=== PATIENT | female | born 1950 | race Caucasian/White ===

== ENCOUNTER 2016-12-11 08:36 | Emergency (ER) | payer OTHER, MEDICARE ==
[~2016-12-11] VITALS: Ht 170.2 cm; Wt 98.4 kg
[2016-12-11 08:36] VITALS: BP_SYST 134
[2016-12-11] MEDS ORDERED: ALPR0.5T96 PO (08:56)
[2016-12-11] MEDS ORDERED: TRAZ-126 PO (08:56)
[2016-12-11] MEDS ORDERED: LEVO100T PO (08:56)
[2016-12-11] MEDS ORDERED: TOP25 PO (08:56)
[2016-12-11] MEDS ORDERED: DOCU-144 PO (08:56)
[2016-12-11] MEDS ORDERED: DULO60CA41 PO (08:56)
[2016-12-11] MEDS ORDERED: ALBU8.5H8 INH (08:56)
[2016-12-11] MEDS ORDERED: ASA81 PO (08:56)
[2016-12-11] MEDS ORDERED: NITR12SP6 TL (08:56)
[2016-12-11] MEDS ORDERED: ZONI100C16 PO (08:56)
[2016-12-11] MEDS ORDERED: FAMO20TA98 PO (08:56)
[2016-12-11] MEDS ORDERED: CHOL500052 PO (08:56)
[2016-12-11] MEDS ORDERED: BACL10TA PO (08:56)
[2016-12-11] MEDS ORDERED: BECL8.7A5 INH (08:56)
[2016-12-11] MEDS ORDERED: MORP1CAP11 PO (08:56)
[2016-12-11] MEDS ORDERED: TIZA4TAB11 PO (08:56)
[2016-12-11] MEDS ORDERED: DIPHENHYDRAMINE INJ 50 MG/ML VIAL IVP ONE (09:00)
[2016-12-11] MEDS ORDERED: MORPHINE 4 MG/ML INJ. SYRINGE IVP ONE (09:00)
[2016-12-11 09:35] LABS: BASOPHILS # (AUTO) 0.2 K/uL (0.0-0.2); BASOPHILS % (AUTO) 2.3 % (0.0-2.0); EOSINOPHILS # (AUTO) 0.2 K/uL (0.0-0.4); EOSINOPHILS % (AUTO) 3.2 % (0.0-4.0); HEMATOCRIT 37.9 % (36-48); HEMOGLOBIN 12.4 g/dL (12.0-16.0); LYMPHOCYTES # (AUTO) 2.1 K/uL (1.0-5.5); LYMPHOCYTES % (AUTO) 28.6 % (20.5-51.5); MEAN CORPUSCULAR HEMOGLOBIN 29 pg (27-31); MEAN CORPUSCULAR HGB CONC 33 % (32-36); MEAN CORPUSCULAR VOLUME 89 fL (79.0-98.0); MONOCYTES # (AUTO) 0.5 K/uL (0.0-1.0); MONOCYTES % (AUTO) 6.8 % (1.7-9.3); NEUTROPHILS # (AUTO) 4.5 K/uL (1.8-7.7); NEUTROPHILS % (AUTO) 59.1 % (40.0-70.0); PLATELET COUNT (AUTO) 274 K/uL (130-430); RED BLOOD CELL COUNT(AUTO) 4.25 MIL/uL (4.2-6.2); RED CELL DISTRIBUTION WIDTH 12.3 % (9.0-15.0); WHITE BLOOD COUNT (AUTO) 7.5 K/uL (4.8-10.8)
[2016-12-11 10:21] LABS: CALCIUM 9.2 mg/dL (8.4-11.0); CREATININE 0.97 mg/dL (0.55-1.30); POTASSIUM 3.5 mmol/L (3.5-5.1)
[2016-12-11 10:22] LABS: INR 0.9 (0.8-1.2); PROTHROMBIN TIME 10.1 SECS (9.5-12.5)
[2016-12-11 10:26] LABS: ALBUMIN 3.8 g/dL (3.4-4.8); TOTAL BILIRUBIN 0.4 mg/dL (0.0-1.0); TOTAL PROTEIN, SERUM 6.9 g/dL (6.4-8.3)
[2016-12-11 11:51] VITALS: BP_SYST 123
== END 2016-12-11 11:51 | disposition home or self-care (01) ==
LOC: SED 08:36
DX: M54.5 Low back pain (principal); M25.511 Pain in right shoulder; M25.562 Pain in left knee; I10 Essential (primary) hypertension; Z85.43 Personal history of malignant neoplasm of ovary; Z79.82 Long term (current) use of aspirin; Z79.899 Other long term (current) drug therapy; Z86.79 Personal history of other diseases of the circulatory system; W01.0XXA Fall on same level from slipping, tripping and stumbling without subsequent striking against object, initial encounter; Y93.89 Activity, other specified; Y92.89 Other specified places as the place of occurrence of the external cause; Y99.8 Other external cause status
CPT/HCPCS: 36415; 71010; 72125; 72131; 73020; 73560; 80053; 83880; 84484; 85025; 85610; 93005; 96374; 96375; 99285; J1200; J2270

== ENCOUNTER 2021-09-11 23:03 | Inpatient (IN) | payer OTHER, MEDICARE, SELFPAY ==
[~2021-09-11] VITALS: Ht 170.2 cm; Wt 90.7 kg
[~2021-09-11 23:03] MED LIST: ALBU8.5H8 INH; ALPR0.5T PO; ASA81 PO; BECL8.7A5 INH; CHOL500052 PO; CYAN100010 PO; DOXY100C PO; LEVO100T PO; MORP1CAP11 PO; POTA-197 PO; TOP25 PO; ZONI100C42 PO
[2021-09-11 23:05] VITALS: BP_SYST 125
[2021-09-11 23:36] LABS: BASOPHILS # (AUTO) 0.1 K/uL (0.0-0.2); BASOPHILS % (AUTO) 1.5 % (0.0-2.0); EOSINOPHILS # (AUTO) 0.3 K/uL (0.0-0.4); EOSINOPHILS % (AUTO) 2.8 % (0.0-4.0); HEMATOCRIT 35.4 % (36-48); HEMOGLOBIN 11.5 g/dL (12.0-16.0); LYMPHOCYTES % (AUTO) 21.7 % (20.5-51.5); MEAN CORPUSCULAR HEMOGLOBIN 30 pg (27-31); MEAN CORPUSCULAR HGB CONC 33 % (32-36); MEAN CORPUSCULAR VOLUME 94 fL (79.0-98.0); MONOCYTES # (AUTO) 0.6 K/uL (0.0-1.0); MONOCYTES % (AUTO) 6.7 % (1.7-9.3); NEUTROPHILS # (AUTO) 6.3 K/uL (1.8-7.7); NEUTROPHILS % (AUTO) 67.3 % (40.0-70.0); PLATELET COUNT (AUTO) 272 K/uL (130-430); RED BLOOD CELL COUNT(AUTO) 3.77 MIL/uL (4.2-6.2); RED CELL DISTRIBUTION WIDTH 13.3 % (9.0-15.0); WHITE BLOOD COUNT (AUTO) 9.4 K/uL (4.8-10.8)
[2021-09-11 23:58] LABS: ANION GAP 14 (5-15); CALCIUM 9.4 mg/dL (8.4-11.0); CHLORIDE 102 mmol/L (98-107); CREATININE 3.37 mg/dL (0.55-1.30); GLUCOSE 124 mg/dL (70-99); POTASSIUM 3.6 mmol/L (3.5-5.1); SODIUM SERUM 139 mmol/L (136-145); UREA NITROGEN, BLOOD 33 mg/dL (8-21)
[2021-09-12 00:07] LABS: ALANINE AMINOTRANSFERASE 48 U/L (12-78); ALBUMIN 3.3 g/dL (3.4-4.8); ASPARTATE AMINOTRANSFERASE 32 U/L (10-37); TOTAL BILIRUBIN 0.3 mg/dL (0.0-1.0)
[2021-09-12 00:08] LABS: GFR AFRICAN AMERICAN 17 mL/min (>90)
[2021-09-12 00:09] LABS: ACETAMINOPHEN < 1 ug/mL (1-30); ALCOHOL, BLOOD < 3 mg/dL (<10)
[2021-09-12] MEDS ORDERED: NACL 0.9% 1,000 ML IV ONE ×3 (00:30→01:45)
[2021-09-12] MEDS ORDERED: CEFEPIME 2 GM in D5W 100 ML IV ONE (01:30)
[2021-09-12] MEDS ORDERED: VANCOMYCIN HCL 1,000 MG in NS 250 ML IV ONE (01:30)
[2021-09-12] MEDS ORDERED: CEFEPIME 1 GM/VIAL (MAXIPIME) ONE (02:43)
[2021-09-12] MEDS ORDERED: VANCOMYCIN HCL 1000 MG/VIAL IV ONE (02:43)
[2021-09-12] MEDS ORDERED: PIPERACILLIN/TAZO 3.375 GM in NS 50 ML IV SCH (06:00)
[2021-09-12 06:06] VITALS: BP_SYST 101
[2021-09-12 06:46] LABS: BASOPHILS # (AUTO) 0.1 K/uL (0.0-0.2); BASOPHILS % (AUTO) 0.6 % (0.0-2.0); EOSINOPHILS # (AUTO) 0.2 K/uL (0.0-0.4); EOSINOPHILS % (AUTO) 1.5 % (0.0-4.0); HEMATOCRIT 34.8 % (36-48); HEMOGLOBIN 11.4 g/dL (12.0-16.0); LYMPHOCYTES # (AUTO) 2.2 K/uL (1.0-5.5); LYMPHOCYTES % (AUTO) 19.5 % (20.5-51.5); MEAN CORPUSCULAR HEMOGLOBIN 31 pg (27-31); MEAN CORPUSCULAR HGB CONC 33 % (32-36); MEAN CORPUSCULAR VOLUME 94 fL (79.0-98.0); MONOCYTES # (AUTO) 0.8 K/uL (0.0-1.0); MONOCYTES % (AUTO) 7.3 % (1.7-9.3); NEUTROPHILS # (AUTO) 8.1 K/uL (1.8-7.7); NEUTROPHILS % (AUTO) 71.1 % (40.0-70.0); PLATELET COUNT (AUTO) 217 K/uL (130-430); RED BLOOD CELL COUNT(AUTO) 3.69 MIL/uL (4.2-6.2); RED CELL DISTRIBUTION WIDTH 13.1 % (9.0-15.0); WHITE BLOOD COUNT (AUTO) 11.4 K/uL (4.8-10.8)
[2021-09-12] MEDS: 0.45% NACL 1,000 ML IV SCH ×2 (07:13→13:30)
[2021-09-12 07:26] LABS: CALCIUM 8.3 mg/dL (8.4-11.0); CREATININE 2.27 mg/dL (0.55-1.30); POTASSIUM 4.1 mmol/L (3.5-5.1)
[2021-09-12 07:41] LABS: ALBUMIN 2.9 g/dL (3.4-4.8); THYROID STIMULATING HORMONE 4.53 uIu/mL (0.36-3.74); TOTAL BILIRUBIN 0.3 mg/dL (0.0-1.0)
[2021-09-12 08:15] VITALS: BP_SYST 110
[2021-09-12 12:26] VITALS: BP_SYST 105
[2021-09-12] MEDS: PIPERACILLIN/TAZOBACTAM 2.25 GM in NS 50 ML IV SCH ×3 (12:35→23:43)
[2021-09-12 16:35] VITALS: BP_SYST 106
[2021-09-12 20:00] VITALS: BP_SYST 110
[2021-09-12] MEDS: POTASSIUM CHLORIDE 20 MEQ TAB.PRT.SR PO SCH (20:13)
[2021-09-12] MEDS: TOPIRAMATE 25 MG TABLET(TOPAMAX) PO SCH (20:14)
[2021-09-12] MEDS: CLOTRIMAZOLE 1% TOPICAL CREAM 15 GM TP SCH (20:14)
[2021-09-12] MEDS: ALPRAZolam 0.25 MG TABLET PO SCH (20:14)
[2021-09-12] MEDS ORDERED: [UNRECOGNIZED DRUG - OTHER] PO SCH (21:00)
[2021-09-12] MEDS ORDERED: MORPHINE SULFATE PO SCH (21:00)
[2021-09-12] MEDS ORDERED: NALTREXONE PO SCH (21:00)
[2021-09-13 00:15] VITALS: BP_SYST 100
[2021-09-13] MEDS: 0.45% NACL 1,000 ML IV SCH ×4 (03:58→21:00)
[2021-09-13 04:00] VITALS: BP_SYST 134
[2021-09-13] MEDS: PIPERACILLIN/TAZOBACTAM 2.25 GM in NS 50 ML IV SCH ×2 (05:12→11:56)
[2021-09-13] MEDS ORDERED: VANCOMYCIN HCL 1,000 MG in NS 250 ML IV SCH (06:00)
[2021-09-13] MEDS: LEVOTHYROXINE SODIUM 0.1 MG TABLET PO SCH (06:13)
[2021-09-13 07:47] VITALS: BP_SYST 113
[2021-09-13] MEDS: TOPIRAMATE 25 MG TABLET(TOPAMAX) PO SCH ×3 (08:54→22:57)
[2021-09-13] MEDS: CYANOCOBALAMIN 1000 mCg TABLET PO SCH (08:54)
[2021-09-13] MEDS: CHOLECALCIFEROL (VITAMIN D3) 5,000 UNIT TABLET PO SCH (08:54)
[2021-09-13] MEDS: POTASSIUM CHLORIDE 20 MEQ TAB.PRT.SR PO SCH ×2 (08:54→22:57)
[2021-09-13] MEDS: ALPRAZolam 0.25 MG TABLET PO SCH ×3 (08:55→22:57)
[2021-09-13] MEDS: ASPIRIN 81 MG TAB.CHEW PO SCH (08:56)
[2021-09-13] MEDS: CLOTRIMAZOLE 1% TOPICAL CREAM 15 GM TP SCH ×2 (08:58→21:00)
[2021-09-13] MEDS: ZONISAMIDE 100 MG CAPSULE PO SCH (09:06)
[2021-09-13 12:20] VITALS: BP_SYST 123
[2021-09-13] MEDS: ACETAMINOPHEN 325 MG TABLET PO PRN (13:33)
[2021-09-13 16:10] VITALS: BP_SYST 126
[2021-09-13] MEDS: cefTRIAXone 1 GM in D5W 50 ML IV SCH (17:50)
[2021-09-13 18:23] LABS: FREE T4 (FREE THYROXINE) 1.2 ng/dl (0.8-1.5); THYROID STIMULATING HORMONE 1.59 uIu/mL (0.36-3.74)
[2021-09-13 20:07] LABS: PROTHROMBIN TIME 10.2 SECS (9.5-12.5)
[2021-09-13 20:58] VITALS: BP_SYST 142
[2021-09-14 02:45] VITALS: BP_SYST 148
[2021-09-14] MEDS: 0.45% NACL 1,000 ML IV SCH ×4 (03:40→22:17)
[2021-09-14 06:53] LABS: CALCIUM 9.4 mg/dL (8.4-11.0); CREATININE 0.73 mg/dL (0.55-1.30); PHOSPHORUS 2.4 mg/dL (2.7-4.5)
[2021-09-14] MEDS: LEVOTHYROXINE SODIUM 0.1 MG TABLET PO SCH (07:00)
[2021-09-14 07:42] LABS: BASOPHILS % (AUTO) 0.4 % (0.0-2.0); EOSINOPHILS # (AUTO) 0.1 K/uL (0.0-0.4); EOSINOPHILS % (AUTO) 1.1 % (0.0-4.0); HEMATOCRIT 32.4 % (36-48); LYMPHOCYTES # (AUTO) 1.6 K/uL (1.0-5.5); LYMPHOCYTES % (AUTO) 17.6 % (20.5-51.5); MEAN CORPUSCULAR HEMOGLOBIN 31 pg (27-31); MEAN CORPUSCULAR HGB CONC 34 % (32-36); MEAN CORPUSCULAR VOLUME 92 fL (79.0-98.0); MONOCYTES # (AUTO) 0.7 K/uL (0.0-1.0); NEUTROPHILS # (AUTO) 6.9 K/uL (1.8-7.7); NEUTROPHILS % (AUTO) 73.9 % (40.0-70.0); PLATELET COUNT (AUTO) 264 K/uL (130-430); RED BLOOD CELL COUNT(AUTO) 3.54 MIL/uL (4.2-6.2); RED CELL DISTRIBUTION WIDTH 13.1 % (9.0-15.0); WHITE BLOOD COUNT (AUTO) 9.4 K/uL (4.8-10.8)
[2021-09-14 08:07] VITALS: BP_SYST 138
[2021-09-14 08:27] LABS: URINE SODIUM, RANDOM 125 mmol/L (40-220)
[2021-09-14] MEDS: ASPIRIN 81 MG TAB.CHEW PO SCH (10:41)
[2021-09-14] MEDS: ZONISAMIDE 100 MG CAPSULE PO SCH (10:41)
[2021-09-14] MEDS: CYANOCOBALAMIN 1000 mCg TABLET PO SCH (10:41)
[2021-09-14] MEDS: POTASSIUM CHLORIDE 20 MEQ TAB.PRT.SR PO SCH (10:41)
[2021-09-14] MEDS: CHOLECALCIFEROL (VITAMIN D3) 5,000 UNIT TABLET PO SCH (10:41)
[2021-09-14] MEDS: CLOTRIMAZOLE 1% TOPICAL CREAM 15 GM TP SCH ×2 (10:42→22:18)
[2021-09-14] MEDS: ALPRAZolam 0.25 MG TABLET PO SCH ×3 (10:42→22:18)
[2021-09-14] MEDS: TOPIRAMATE 25 MG TABLET(TOPAMAX) PO SCH ×3 (10:42→22:18)
[2021-09-14 12:03] VITALS: BP_SYST 152
[2021-09-14 16:21] VITALS: BP_SYST 146
[2021-09-14] MEDS: cefTRIAXone 1 GM in D5W 50 ML IV SCH (17:18)
[2021-09-14] MEDS ORDERED: POTASSIUM CHLORIDE 20 MEQ/PKT PACKET PO ONE (20:15)
[2021-09-14] MEDS ORDERED: K PHOS 30 MM in NS 250 ML IV ONE (20:15)
[2021-09-14 20:21] VITALS: BP_SYST 149
[2021-09-15 00:52] VITALS: BP_SYST 144
[2021-09-15] MEDS ORDERED: K PHOS 30 MM in NS 250 ML IV ONE (07:00)
[2021-09-15 07:13] LABS: BASOPHILS % (AUTO) 0.5 % (0.0-2.0); EOSINOPHILS # (AUTO) 0.2 K/uL (0.0-0.4); HEMATOCRIT 33.1 % (36-48); HEMOGLOBIN 11.2 g/dL (12.0-16.0); LYMPHOCYTES # (AUTO) 1.6 K/uL (1.0-5.5); LYMPHOCYTES % (AUTO) 18.7 % (20.5-51.5); MEAN CORPUSCULAR HEMOGLOBIN 31 pg (27-31); MEAN CORPUSCULAR HGB CONC 34 % (32-36); MEAN CORPUSCULAR VOLUME 92 fL (79.0-98.0); MONOCYTES # (AUTO) 0.8 K/uL (0.0-1.0); MONOCYTES % (AUTO) 8.6 % (1.7-9.3); NEUTROPHILS # (AUTO) 6.1 K/uL (1.8-7.7); NEUTROPHILS % (AUTO) 70.2 % (40.0-70.0); PLATELET COUNT (AUTO) 276 K/uL (130-430); RED CELL DISTRIBUTION WIDTH 13.1 % (9.0-15.0); WHITE BLOOD COUNT (AUTO) 8.7 K/uL (4.8-10.8)
[2021-09-15] MEDS: LEVOTHYROXINE SODIUM 0.1 MG TABLET PO SCH (07:18)
[2021-09-15 07:30] LABS: CALCIUM 9.2 mg/dL (8.4-11.0); CREATININE 0.72 mg/dL (0.55-1.30); PHOSPHORUS 2.9 mg/dL (2.7-4.5)
[2021-09-15 08:00] VITALS: BP_SYST 137
[2021-09-15 08:12] LABS: POTASSIUM 2.5 mmol/L (3.5-5.1)
[2021-09-15] MEDS ORDERED: POTASSIUM CHLORIDE 20 MEQ/PKT PACKET PO ONE (08:30)
[2021-09-15] MEDS: CLOTRIMAZOLE 1% TOPICAL CREAM 15 GM TP SCH ×2 (09:49→20:56)
[2021-09-15] MEDS: TOPIRAMATE 25 MG TABLET(TOPAMAX) PO SCH ×3 (09:50→20:55)
[2021-09-15] MEDS: ZONISAMIDE 100 MG CAPSULE PO SCH (09:50)
[2021-09-15] MEDS: ALPRAZolam 0.25 MG TABLET PO SCH ×3 (09:50→20:55)
[2021-09-15] MEDS: CHOLECALCIFEROL (VITAMIN D3) 5,000 UNIT TABLET PO SCH (09:50)
[2021-09-15] MEDS: ASPIRIN 81 MG TAB.CHEW PO SCH (09:51)
[2021-09-15] MEDS: CYANOCOBALAMIN 1000 mCg TABLET PO SCH (09:51)
[2021-09-15 11:35] LABS: BILIRUBIN,URINE NEGATIVE (NEGATIVE); BLOOD, URINE NEGATIVE (NEGATIVE); CLARITY/URINE CLEAR (CLEAR); COLOR,URINE YELLOW (YELLOW); GLUCOSE,URINE NEGATIVE (NEGATIVE); KETONES,URINE 1+ (NEGATIVE); LEUKOCYTE ESTERASE ,URINE NEGATIVE (NEGATIVE); NITRITE, URINE NEGATIVE (NEGATIVE); PROTEIN URINE NEGATIVE (NEGATIVE); UROBILINOGEN,URINE 0.2 (0.2-1.0)
[2021-09-15 12:00] VITALS: BP_SYST 140
[2021-09-15 16:19] VITALS: BP_SYST 139
[2021-09-15] MEDS: 0.45% NACL 1,000 ML IV SCH (16:27)
[2021-09-15] MEDS: cefTRIAXone 1 GM in D5W 50 ML IV SCH (17:45)
[2021-09-15 18:40] LABS: PHOSPHORUS 4.3 mg/dL (2.7-4.5); POTASSIUM 3.1 mmol/L (3.5-5.1)
[2021-09-15 20:00] VITALS: BP_SYST 148
[2021-09-15] MEDS: SODIUM BICARBONATE 650 MG TABLET PO SCH (20:55)
[2021-09-16 00:30] VITALS: BP_SYST 145
[2021-09-16] MEDS: 0.45% NACL 1,000 ML IV SCH ×2 (05:35→14:32)
[2021-09-16] MEDS ORDERED: POTASSIUM CHLORIDE 20 MEQ in NS 250 ML IV ONE (06:00)
[2021-09-16] MEDS: LEVOTHYROXINE SODIUM 0.1 MG TABLET PO SCH (06:24)
[2021-09-16 06:57] LABS: CALCIUM 8.6 mg/dL (8.4-11.0); CREATININE 0.7 mg/dL (0.55-1.30)
[2021-09-16 08:00] VITALS: BP_SYST 140
[2021-09-16 08:33] LABS: POTASSIUM 2.7 mmol/L (3.5-5.1)
[2021-09-16] MEDS: ASPIRIN 81 MG TAB.CHEW PO SCH (09:51)
[2021-09-16] MEDS: SODIUM BICARBONATE 650 MG TABLET PO SCH ×2 (09:51→20:52)
[2021-09-16] MEDS: CHOLECALCIFEROL (VITAMIN D3) 5,000 UNIT TABLET PO SCH (09:51)
[2021-09-16] MEDS: ALPRAZolam 0.25 MG TABLET PO SCH ×3 (09:51→20:52)
[2021-09-16] MEDS: TOPIRAMATE 25 MG TABLET(TOPAMAX) PO SCH ×3 (09:51→20:52)
[2021-09-16] MEDS: CYANOCOBALAMIN 1000 mCg TABLET PO SCH (09:51)
[2021-09-16] MEDS: POTASSIUM CHLORIDE 20 MEQ/PKT PACKET PO SCH ×2 (09:52→20:52)
[2021-09-16] MEDS: ZONISAMIDE 100 MG CAPSULE PO SCH (09:52)
[2021-09-16] MEDS: CLOTRIMAZOLE 1% TOPICAL CREAM 15 GM TP SCH ×2 (09:52→20:53)
[2021-09-16] MEDS: DIPHENOXYLATE HCL/ATROP SULF 2.5 MG TAB PO PRN ×2 (10:52→17:30)
[2021-09-16] MEDS ORDERED: POTASSIUM CHLORIDE 20 MEQ/PKT PACKET PO ONE (11:00)
[2021-09-16 12:19] VITALS: BP_SYST 155
[2021-09-16 16:30] VITALS: BP_SYST 150
[2021-09-16 16:47] LABS: CALCIUM 8.4 mg/dL (8.4-11.0); CREATININE 0.66 mg/dL (0.55-1.30); POTASSIUM 3.6 mmol/L (3.5-5.1)
[2021-09-16] MEDS: cefTRIAXone 1 GM in D5W 50 ML IV SCH (17:29)
[2021-09-16 20:00] VITALS: BP_SYST 137
[2021-09-17 00:25] VITALS: BP_SYST 131
[2021-09-17] MEDS: LEVOTHYROXINE SODIUM 0.1 MG TABLET PO SCH (06:45)
[2021-09-17] MEDS: DIPHENOXYLATE HCL/ATROP SULF 2.5 MG TAB PO PRN ×2 (06:50→10:15)
[2021-09-17 07:32] LABS: BASOPHILS # (AUTO) 0.1 K/uL (0.0-0.2); BASOPHILS % (AUTO) 0.7 % (0.0-2.0); EOSINOPHILS # (AUTO) 0.4 K/uL (0.0-0.4); EOSINOPHILS % (AUTO) 4.6 % (0.0-4.0); HEMATOCRIT 30.8 % (36-48); HEMOGLOBIN 10.4 g/dL (12.0-16.0); LYMPHOCYTES # (AUTO) 1.7 K/uL (1.0-5.5); LYMPHOCYTES % (AUTO) 20.7 % (20.5-51.5); MEAN CORPUSCULAR HEMOGLOBIN 31 pg (27-31); MEAN CORPUSCULAR HGB CONC 34 % (32-36); MEAN CORPUSCULAR VOLUME 92 fL (79.0-98.0); MONOCYTES # (AUTO) 0.6 K/uL (0.0-1.0); MONOCYTES % (AUTO) 7.4 % (1.7-9.3); NEUTROPHILS # (AUTO) 5.6 K/uL (1.8-7.7); NEUTROPHILS % (AUTO) 66.6 % (40.0-70.0); PLATELET COUNT (AUTO) 261 K/uL (130-430); RED BLOOD CELL COUNT(AUTO) 3.36 MIL/uL (4.2-6.2); RED CELL DISTRIBUTION WIDTH 13.3 % (9.0-15.0); WHITE BLOOD COUNT (AUTO) 8.4 K/uL (4.8-10.8)
[2021-09-17 08:15] VITALS: BP_SYST 140
[2021-09-17 09:00] LABS: CALCIUM 8.3 mg/dL (8.4-11.0); CREATININE 0.66 mg/dL (0.55-1.30)
[2021-09-17] MEDS ORDERED: CHOLECALCIFEROL (VITAMIN D3) 5,000 UNIT TABLET PO SCH (09:00)
[2021-09-17] MEDS: ALPRAZolam 0.25 MG TABLET PO SCH (09:51)
[2021-09-17] MEDS: CYANOCOBALAMIN 1000 mCg TABLET PO SCH (09:52)
[2021-09-17] MEDS: TOPIRAMATE 25 MG TABLET(TOPAMAX) PO SCH (09:52)
[2021-09-17] MEDS: SODIUM BICARBONATE 650 MG TABLET PO SCH (09:52)
[2021-09-17] MEDS: ZONISAMIDE 100 MG CAPSULE PO SCH (09:52)
[2021-09-17] MEDS: POTASSIUM CHLORIDE 20 MEQ/PKT PACKET PO SCH (09:52)
[2021-09-17] MEDS: ASPIRIN 81 MG TAB.CHEW PO SCH (09:52)
[2021-09-17] MEDS: CLOTRIMAZOLE 1% TOPICAL CREAM 15 GM TP SCH (09:53)
[2021-09-17] MEDS: 0.45% NACL 1,000 ML IV SCH (09:54)
[2021-09-17] MEDS: ACETAMINOPHEN 325 MG TABLET PO PRN (10:06)
[2021-09-17 12:28] VITALS: BP_SYST 151
[2021-09-17] MEDS ORDERED: HYDROcodone/ACETAMIN 5-325 MG TAB (NORCO/ VICODIN) PO PRN (13:30)
[2021-09-17] MEDS ORDERED: MORPHINE SULFATE 15 MG TABLET.ER PO ONE (14:00)
[2021-09-17] MEDS ORDERED: MORP15TA60 PO (14:51)
[2021-09-17] MEDS ORDERED: LIDO1ADH77 (14:51)
[2021-09-17] MEDS ORDERED: DULO60CA42 PO (14:51)
[2021-09-17] MEDS ORDERED: GABA-529 PO (14:51)
[2021-09-17] MEDS ORDERED: NITR0.4T47 SL (14:51)
[2021-09-17] MEDS ORDERED: DOCU-144 PO (14:51)
[2021-09-17] MEDS ORDERED: TOPI200T PO (14:51)
[2021-09-17] MEDS ORDERED: ALBU8.5H8 INH (14:51)
[2021-09-17] MEDS ORDERED: NITR12SP6 TL (14:51)
[2021-09-17] MEDS ORDERED: LIDO700A30 TP (14:51)
[2021-09-17] MEDS ORDERED: TRAZ-251 PO (14:51)
[2021-09-17] MEDS ORDERED: ZAN4 PO (14:51)
[2021-09-17] MEDS ORDERED: SULF5DRO EACH EYE (14:51)
[2021-09-17] MEDS ORDERED: FAMO20TA8 PO (14:51)
[2021-09-17 15:28] VITALS: BP_SYST 142
[2021-09-17] MEDS ORDERED: MORPHINE SULFATE 15 MG TABLET.ER PO SCH (21:00)
== END 2021-09-17 17:33 | disposition home or self-care (01) | DRG 91 ==
LOC: SED 23:03 → STU 09-12 05:00
PROVIDERS: ADMIT Internal Medicine; ATTEND Internal Medicine
PROC: 02HV33Z Insertion of Infusion Device into Superior Vena Cava, Percutaneous Approach (ICD-10-PCS; principal; 2021-09-13)
DX: G92.8 Other toxic encephalopathy (principal); N17.0 Acute kidney failure with tubular necrosis; N18.4 Chronic kidney disease, stage 4 (severe); E03.9 Hypothyroidism, unspecified; E11.22 Type 2 diabetes mellitus with diabetic chronic kidney disease; F02.80 Dementia in other diseases classified elsewhere, unspecified severity, without behavioral disturbance, psychotic disturbance, mood disturbance, and anxiety; G30.9 Alzheimer's disease, unspecified; G40.909 Epilepsy, unspecified, not intractable, without status epilepticus; I12.9 Hypertensive chronic kidney disease with stage 1 through stage 4 chronic kidney disease, or unspecified chronic kidney disease; I25.10 Atherosclerotic heart disease of native coronary artery without angina pectoris; J44.9 Chronic obstructive pulmonary disease, unspecified; E86.0 Dehydration; E87.6 Hypokalemia; R19.7 Diarrhea, unspecified; K21.9 Gastro-esophageal reflux disease without esophagitis; Z20.822 Contact with and (suspected) exposure to COVID-19; Z79.82 Long term (current) use of aspirin; Z85.43 Personal history of malignant neoplasm of ovary; Z86.73 Personal history of transient ischemic attack (TIA), and cerebral infarction without residual deficits; Z87.891 Personal history of nicotine dependence; Z95.0 Presence of cardiac pacemaker; Z91.09 Other allergy status, other than to drugs and biological substances; Z79.2 Long term (current) use of antibiotics; Z79.01 Long term (current) use of anticoagulants; Z79.899 Other long term (current) drug therapy
CPT/HCPCS: 36415; 70450-TC; 71045; 76376; 76770; 80048; 80053; 80061; 81003; 82043; 82140; 82306; 82570; 83605; 83735; 84100; 84132; 84295; 84302; 84436; 84439; 84443; 84479; 84484; 85025; 85610-TC; 85730-TC; 87040; 87086; 87177; 87230-TC; 93005; 96361; 96365; 96367; 97110-GP; 97116-GP; 97163-GP; 97530-GP; 99291; G0378; G0480; G0482; J0692; J0696; J2543; J3370; J3480; J7050; J7060

== ENCOUNTER 2023-01-30 15:45 | Inpatient (IN) | payer OTHER, MEDICARE ==
[~2023-01-30] VITALS: Ht 165.1 cm; Wt 86.2 kg
[~2023-01-30 15:45] MED LIST changes: -CYAN100010 PO; +DOCU-144 PO; -DOXY100C PO; +DULO60CA42 PO; +FAMO20TA8 PO; +GABA-529 PO; +LIDO700A30 TP; +MORP15TA60 PO; -MORP1CAP11 PO; +NITR0.4T47 SL; -POTA-197 PO; +SULF5DRO EACH EYE; -TOP25 PO; +TOPI200T PO; +TRAZ-251 PO; +ZAN4 PO
--- NOTE | 2023-01-30 15:49 | NUR ---
Patient to ER bed 03 to gown for evaluation. Side rails up.
[2023-01-30 15:52] VITALS: BP_SYST 127; PULSE 94; RESP 18; TEMP 98.3; O2SAT 95
[2023-01-30] MEDS ORDERED: MORPHINE 4 MG INJ. 4 MG/ML VIAL IM ONE (16:15)
[2023-01-30] MEDS ORDERED: KETOROLAC TROMETHAMINE 60 MG/2 ML VIAL IM ONE (16:15)
--- NOTE | 2023-01-30 16:45 | NUR ---
Patient has been seen by MD and radiologic exams completed. MD back to bedside to tell patient that she has fracture and how it will be treated. Patient agrees with MD plan.
--- NOTE | 2023-01-30 17:15 | NUR ---
Patient received pain medicine and currently is getting splint placed by EMT. remains at bedside and patient to be discharged after MD reviews splint and care.
--- NOTE | 2023-01-30 18:15 | NUR ---
Patient and spoke with MD after patient was slated for discharge and patient felt she couldn't go back home with the stairs and other issues at her house at this time. MD resciended discharge and made it available for patient to be admitted at this time.
[2023-01-30] MEDS ORDERED: DOCUSATE SODIUM 100 MG CAPSULE PO PRN (18:30)
[2023-01-30] MEDS ORDERED: ZOLPIDEM TARTRATE 5 MG TABLET PO PRN (18:30)
[2023-01-30] MEDS ORDERED: MAGNESIUM SULFATE 50 ML IV PRN (18:30)
[2023-01-30] MEDS ORDERED: POTASSIUM CHLORIDE 20 MEQ TAB.PRT.SR PO PRN (18:30)
[2023-01-30] MEDS ORDERED: MORPHINE 2 MG/ML INJ. SYRINGE IVP PRN (18:30)
[2023-01-30] MEDS ORDERED: MUPIROCIN 2% TOPICAL OINTMENT 22 GM NS PRN (18:30)
[2023-01-30] MEDS ORDERED: LORazepam 2 MG/ML VIAL IVP PRN (18:30)
[2023-01-30] MEDS ORDERED: ACETAMINOPHEN 325 MG TABLET PO PRN ×2 (18:30)
[2023-01-30] MEDS ORDERED: ONDANSETRON HCL 4 MG/2 ML VIAL IVP PRN (18:30)
[2023-01-30] MEDS ORDERED: NACL 0.9% 1,000 ML IV ONE (18:30)
[2023-01-30 18:49] LABS: BASOPHILS # (AUTO) 0.1 K/uL (0.0-0.2); BASOPHILS % (AUTO) 1.1 % (0.0-2.0); EOSINOPHILS # (AUTO) 0.2 K/uL (0.0-0.4); HEMATOCRIT 37.5 % (36-48); HEMOGLOBIN 12.4 g/dL (12.0-16.0); LYMPHOCYTES # (AUTO) 2.4 K/uL (1.0-5.5); LYMPHOCYTES % (AUTO) 25.7 % (20.5-51.5); MEAN CORPUSCULAR HEMOGLOBIN 29 pg (27-31); MEAN CORPUSCULAR HGB CONC 33 % (32-36); MEAN CORPUSCULAR VOLUME 89 fL (79.0-98.0); MONOCYTES # (AUTO) 0.6 K/uL (0.0-1.0); MONOCYTES % (AUTO) 6.2 % (1.7-9.3); NEUTROPHILS # (AUTO) 6.1 K/uL (1.8-7.7); PLATELET COUNT (AUTO) 273 K/uL (130-430); RED BLOOD CELL COUNT(AUTO) 4.24 MIL/uL (4.2-6.2); WHITE BLOOD COUNT (AUTO) 9.4 K/uL (4.8-10.8)
[2023-01-30] MEDS: NACL 0.9% 1,000 ML IV SCH (18:54)
--- NOTE | 2023-01-30 19:06 | NUR ---
Admit bed requested Patient will be admitted to care of . Admitted to med-surg unit. Diagnosis Left arm fracture. Inpatient (Yes or No) Y Observation (Yes or No) N Orientation concerns or request close to nursing station (Yes or No) Y Covid Status N On vent or bipap N Isolation requirements N Needs a sitter N From Home (Yes or if No enter name of facility) Y Requires Dialysis (Yes or No) N Med Rec Completed (Yes of No) Y
[2023-01-30 19:17] LABS: ALANINE AMINOTRANSFERASE 22 U/L (12-78); ALBUMIN 3.1 g/dL (3.4-4.8); ANION GAP 7 (5-15); ASPARTATE AMINOTRANSFERASE 21 U/L (10-37); CALCIUM 8.9 mg/dL (8.4-11.0); CHLORIDE 107 mmol/L (98-107); CREATININE 0.93 mg/dL (0.55-1.30); GLUCOSE 115 mg/dL (74-106); TOTAL BILIRUBIN 0.2 mg/dL (0.0-1.0); UREA NITROGEN, BLOOD 14 mg/dL (8-21)
--- NOTE | 2023-01-30 19:43 | NUR ---
PATIENT STABLE VITALS SIGNS IN NORMAL LIMITS NOT COMPLAINING OF PAIN AT THIS TIME
--- NOTE | 2023-01-30 21:20 | NUR ---
RECEIVED PATIENT TO ROOM 106B FROM THE EMERGENCY ROOM VIA GURNEY, ACCOMPANIED BY CHIEF MEDICAL OFFICER. ASSUMED CARE, AND STARTED ASSESSMENT.
--- NOTE | 2023-01-30 21:21 | NUR ---
Patient will be admitted to care of . Admitted to unit. Will go to room . Belongings list completed. Complete and up to date summary report printed. SBAR report to be given at bedside with opportunity for questions.patient stable vitals signs in normal limits repor and endorse care to Christopher WAITE
[2023-01-30 21:53] VITALS: BP_SYST 147; PULSE 73; RESP 16; TEMP 97.1; O2SAT 97
[2023-01-30] MEDS: ZONISAMIDE 100 MG CAPSULE PO SCH (22:00)
[2023-01-30 22:40] LABS: BILIRUBIN,URINE NEGATIVE (NEGATIVE); BLOOD, URINE NEGATIVE (NEGATIVE); CLARITY/URINE CLEAR (CLEAR); COLOR,URINE YELLOW (YELLOW); GLUCOSE,URINE NEGATIVE (NEGATIVE); KETONES,URINE NEGATIVE (NEGATIVE); LEUKOCYTE ESTERASE ,URINE NEGATIVE (NEGATIVE); NITRITE, URINE NEGATIVE (NEGATIVE); PH,URINE 7.5 (5.0-8.0); PROTEIN URINE NEGATIVE (NEGATIVE)
[2023-01-31] MEDS: traZODone HCL 50 MG TABLET (DESYREL) PO SCH ×2 (01:05→21:49)
[2023-01-31] MEDS: GABAPENTIN 100 MG CAPSULE PO SCH ×3 (01:05→21:48)
[2023-01-31] MEDS: DULoxetine HCL 30 MG CAPSULE.DR (CYMBALTA) PO SCH ×3 (01:05→21:48)
[2023-01-31] MEDS: TOPIRAMATE 100 MG TABLET(Topamax) PO SCH ×2 (01:06→21:48)
[2023-01-31] MEDS: HEPARIN SODIUM,PORCINE 5,000 UNITS/ML VIAL SUBCUT SCH ×3 (01:07→21:50)
--- NOTE | 2023-01-31 01:47 | NUR ---
Consultation Paged Reason for Consultation: R Fibular Fx Was consult called: Y Person who was notified: Abena Consulting Physician: Michel Kulkarni Ordering Physician: Dr. Lopez
[2023-01-31 05:17] LABS: BASOPHILS % (AUTO) 0.4 % (0.0-2.0); EOSINOPHILS # (AUTO) 0.3 K/uL (0.0-0.4); EOSINOPHILS % (AUTO) 3.8 % (0.0-4.0); HEMATOCRIT 34.9 % (36-48); HEMOGLOBIN 11.6 g/dL (12.0-16.0); LYMPHOCYTES # (AUTO) 2.8 K/uL (1.0-5.5); LYMPHOCYTES % (AUTO) 39.9 % (20.5-51.5); MEAN CORPUSCULAR HEMOGLOBIN 29 pg (27-31); MEAN CORPUSCULAR HGB CONC 33 % (32-36); MEAN CORPUSCULAR VOLUME 88 fL (79.0-98.0); MONOCYTES # (AUTO) 0.5 K/uL (0.0-1.0); MONOCYTES % (AUTO) 7.6 % (1.7-9.3); NEUTROPHILS # (AUTO) 3.4 K/uL (1.8-7.7); NEUTROPHILS % (AUTO) 48.3 % (40.0-70.0); PLATELET COUNT (AUTO) 240 K/uL (130-430); RED BLOOD CELL COUNT(AUTO) 3.97 MIL/uL (4.2-6.2); RED CELL DISTRIBUTION WIDTH 12.8 % (9.0-15.0)
[2023-01-31 05:51] LABS: ANION GAP 9 (5-15); CALCIUM 8.1 mg/dL (8.4-11.0); CHLORIDE 109 mmol/L (98-107); CREATININE 0.91 mg/dL (0.55-1.30); GLUCOSE 96 mg/dL (74-106); UREA NITROGEN, BLOOD 12 mg/dL (8-21)
[2023-01-31] MEDS: LEVOTHYROXINE SODIUM 0.1 MG TABLET PO SCH (06:14)
--- NOTE | 2023-01-31 07:37 | NUR ---
REPORT GIVEN TO PATY REZA, AND CARE WAS TURNED OVER TO HER.
--- NOTE | 2023-01-31 08:00 | NUR ---
opening pt alert oriented x4, states she does not have pain at this time, is comfortable in bed, pt reminded not to get out of bed, educated occupational safety and health manager light and fall precautions in place.
[2023-01-31 08:37] VITALS: BP_SYST 132; PULSE 81; RESP 12; TEMP 98; O2SAT 95
[2023-01-31] MEDS: ASPIRIN 81 MG TAB.CHEW PO SCH (08:59)
[2023-01-31] MEDS: DOCUSATE SODIUM 100 MG CAPSULE PO SCH (09:09)
[2023-01-31] MEDS: NACL 0.9% 1,000 ML IV SCH ×2 (09:18→23:21)
[2023-01-31] MEDS: ZONISAMIDE 100 MG CAPSULE PO SCH ×2 (09:27→21:53)
--- NOTE | 2023-01-31 09:30 | NUR ---
pain pt c/o pain in the left hand says it is a 8 on scale on 1-10, ivp morphine given by howie salinas as per orders for pain relief
[2023-01-31] MEDS: MORPHINE 2 MG/ML INJ. SYRINGE IVP PRN ×3 (09:34→21:41)
--- NOTE | 2023-01-31 10:41 | NUR ---
seizure precautions seizure precautions in place on bed, pt educated on fall precautions, yellow gown, arm band and socks on, call light with in reach
[2023-01-31 11:40] VITALS: BP_SYST 139; PULSE 71; RESP 16; TEMP 98.1; O2SAT 94
--- NOTE | 2023-01-31 14:00 | NUR ---
CT PT TAKEN VIA [facility] FOR CT SCAN OF HEAD WITHOUT CONTRAST
[2023-01-31 16:00] VITALS: BP_SYST 138; PULSE 73; RESP 16; TEMP 98.1; O2SAT 94
[2023-01-31 17:07] VITALS: O2SAT 98
--- NOTE | 2023-01-31 17:24 | NUR ---
PAIN PT C/O PAIN, PAIN MED GIVEN PER DR. KATZ, PT STATES PAIN IS AN 8 ON A SCALE OF 1-10
--- NOTE | 2023-01-31 19:05 | NUR ---
CLOSING, PT COMFORTABLE IN BED , CALL LIGHT WITH IN REACH, FALL PRECAUTIONS IN PLACE, PT INSTRUCTED TO CALL FOR ANY NEEDS, CARE ENDORSED TO NEXT SHIFT/
--- NOTE | 2023-01-31 19:40 | NUR ---
OPENING NOTE PT LYING IN BED AND EYES OPEN. REPORTED PAIN ON LEFT HAND AND RIGHT LEG /10. NO IV ACCESS D/T LEAKING. DRESSING WRAPPED ON LEFT AND AND RIGHT ANKLE, CLEAN DRY, INTACT. NO S/S OF ACUTE DISTRESS. BED ALARM ON. SAFETY CHECKS IN PLACE. CALL LIGHT IN REACH. CONTINUE TO MONITOR
[2023-01-31 20:00] VITALS: O2SAT 96
--- NOTE | 2023-01-31 22:30 | NUR ---
NEW IV. CHARGE NURSE SCHUYLER OBTAINED IV 24G ON RIGHT HAND.
[2023-02-01] VITALS (8 sets, daily range): BP systolic 118–156; PULSE 68–81; RESP 14–20; TEMP 97.4–98.2; O2SAT 95–100
--- NOTE | 2023-02-01 01:20 | NUR ---
NOTE: PT LYING IN BED AND RESTING. PT STATED PAIN RELIEVED LITTLE BIT. ALL COMFORT MEASURE MET AT THIS MOMENT. BED ALARM ON. SAFETY CHECKS IN PLACE. CALL LIGHT IN REACH. CONTINUE TO MONITOR
[2023-02-01] MEDS: LEVOTHYROXINE SODIUM 0.1 MG TABLET PO SCH (06:02)
--- NOTE | 2023-02-01 07:15 | NUR ---
closing note PT LYING IN BED AND EYES CLOSED. BREATHING EVEN. NO S/S OF ACUTE DISTRESS. SAFETY CHECKS IN PLACE. CALL LIGHT IN REACH. BED ALARM ON. ENDORSED TO DAY SHIFT NURSE
--- NOTE | 2023-02-01 08:00 | NUR ---
opening pt awake alert orientedx4, sitting up in bed, no apperant distress, call light with in reach, fall precautions in place, pt educated on how to use call light, call light with in reach.
[2023-02-01 09:23] LABS: BASOPHILS # (AUTO) 0.1 K/uL (0.0-0.2); EOSINOPHILS # (AUTO) 0.2 K/uL (0.0-0.4); EOSINOPHILS % (AUTO) 4.2 % (0.0-4.0); HEMATOCRIT 38.9 % (36-48); HEMOGLOBIN 12.5 g/dL (12.0-16.0); LYMPHOCYTES # (AUTO) 1.9 K/uL (1.0-5.5); LYMPHOCYTES % (AUTO) 38.1 % (20.5-51.5); MEAN CORPUSCULAR HEMOGLOBIN 29 pg (27-31); MEAN CORPUSCULAR HGB CONC 32 % (32-36); MEAN CORPUSCULAR VOLUME 89 fL (79.0-98.0); MONOCYTES # (AUTO) 0.3 K/uL (0.0-1.0); NEUTROPHILS # (AUTO) 2.5 K/uL (1.8-7.7); NEUTROPHILS % (AUTO) 50.7 % (40.0-70.0); PLATELET COUNT (AUTO) 254 K/uL (130-430); RED BLOOD CELL COUNT(AUTO) 4.39 MIL/uL (4.2-6.2); RED CELL DISTRIBUTION WIDTH 12.9 % (9.0-15.0); WHITE BLOOD COUNT (AUTO) 4.9 K/uL (4.8-10.8)
[2023-02-01 09:31] LABS: ANION GAP 8 (5-15); CALCIUM 8.3 mg/dL (8.4-11.0); CHLORIDE 109 mmol/L (98-107); CREATININE 0.83 mg/dL (0.55-1.30); GLUCOSE 102 mg/dL (74-106); UREA NITROGEN, BLOOD 6 mg/dL (8-21)
[2023-02-01] MEDS: HEPARIN SODIUM,PORCINE 5,000 UNITS/ML VIAL SUBCUT SCH (09:46)
[2023-02-01] MEDS: ZONISAMIDE 100 MG CAPSULE PO SCH (09:47)
[2023-02-01] MEDS: DULoxetine HCL 30 MG CAPSULE.DR (CYMBALTA) PO SCH (09:47)
[2023-02-01] MEDS: GABAPENTIN 100 MG CAPSULE PO SCH (09:47)
[2023-02-01] MEDS: DOCUSATE SODIUM 100 MG CAPSULE PO SCH (09:47)
[2023-02-01] MEDS: ASPIRIN 81 MG TAB.CHEW PO SCH (09:47)
[2023-02-01] MEDS: MORPHINE 2 MG/ML INJ. SYRINGE IVP PRN ×2 (10:02→15:20)
--- NOTE | 2023-02-01 10:17 | NUR ---
pain pt c/o pain 8 on a scale of 1-10, iv morphine given as per orders for pain.
--- NOTE | 2023-02-01 11:00 | NUR ---
PAIN REASSS PT STATES RELIEF FROM YISEL IN HER HAND AND RT ANKLE
--- NOTE | 2023-02-01 11:04 | NUR ---
PATIENT REFUSED PT TREATMENT TODAY DESPITE [facility]. WILL TRY AGAIN TOMORROW.
[2023-02-01] MEDS: NACL 0.9% 1,000 ML IV SCH (11:41)
--- NOTE | 2023-02-01 14:22 | NUR ---
MRS CANTU WILL BE PICKED UP BY MEDIC SHE WILL BE GOING TO [facility] TO ROOM 111. [phone] AT 400PM
--- NOTE | 2023-02-01 16:46 | NUR ---
FOLY CATH DCd RUCKER CATH REMOVED, PT HAS NO C/O DISCOMFORT, PUT PT IN PAIR OF UNDERWEAR WITH A PAD AND A GOWN FOR TRANSFER,
--- NOTE | 2023-02-01 18:45 | NUR ---
DISCHARGE PT DISCHARGED TO FACILITY VIA MED[facility] 1 AMBULOANCE, REPORT GIVEN. IV REMOVED, RUCKER REMOVED
== END 2023-02-01 18:30 | DRG 563 ==
LOC: SED 15:45 → SMU 19:04
PROVIDERS: ADMIT General Practice; ATTEND General Practice
PROC: 2W3QX1Z Immobilization of Right Lower Leg using Splint (ICD-10-PCS; principal; 2023-01-30)
PROC: 2W3KX1Z Immobilization of Left Finger using Splint (ICD-10-PCS; 2023-01-30)
DX: S82.401A Unspecified fracture of shaft of right fibula, initial encounter for closed fracture (principal); S62.611A Displaced fracture of proximal phalanx of left index finger, initial encounter for closed fracture; E83.51 Hypocalcemia; E87.6 Hypokalemia; E03.9 Hypothyroidism, unspecified; I10 Essential (primary) hypertension; G89.29 Other chronic pain; I25.10 Atherosclerotic heart disease of native coronary artery without angina pectoris; K21.9 Gastro-esophageal reflux disease without esophagitis; F03.90 Unspecified dementia, unspecified severity, without behavioral disturbance, psychotic disturbance, mood disturbance, and anxiety; S82.891A Other fracture of right lower leg, initial encounter for closed fracture; W18.39XA Other fall on same level, initial encounter; F32.A Depression, unspecified; J44.9 Chronic obstructive pulmonary disease, unspecified; G40.909 Epilepsy, unspecified, not intractable, without status epilepticus; Z90.710 Acquired absence of both cervix and uterus; Z86.73 Personal history of transient ischemic attack (TIA), and cerebral infarction without residual deficits; Z85.43 Personal history of malignant neoplasm of ovary; Z88.8 Allergy status to other drugs, medicaments and biological substances; Z79.899 Other long term (current) drug therapy; Z79.82 Long term (current) use of aspirin; Z90.49 Acquired absence of other specified parts of digestive tract; Y93.89 Activity, other specified; Y92.89 Other specified places as the place of occurrence of the external cause; Y99.8 Other external cause status
CPT/HCPCS: 36415; 70450-TC; 76376; 80048; 80053; 81003; 83037; 83735; 85025; 87081; 93005; 96372; 97110-GP; 97163-GP; 99285; J1644; J1885; J2270; J7030